=== PATIENT | female | born 1985 | race Hispanic/Latino ===

== ENCOUNTER 2019-08-05 13:08 | Outpatient (CLI) | payer OTHER ==
--- NOTE | 2019-08-05 13:39 | RAD ---
EXAM: XR Pelvis AP STANDARD PROVIDED CLINICAL HISTORY: Right hip pain. COMPARISON: None FINDINGS: Small sclerotic density is seen in the left supra-acetabular region likely related to small bone geena nd. There is otherwise no evidence of fracture, dislocation, or other osseous abnormality. A T-shaped intrauterine contraceptive device overlies the pelvis. IMPRESSION: No acute osseous abnormality.
--- NOTE | 2019-08-05 13:40 | RAD ---
Exam: XR Hip Rt 2-3 View HISTORY: Pelvic pain for 5 years. COMPARISON: None FINDINGS: No acute fracture, dislocation, or other acute osseous abnormality is identified. A T-shaped intrauterine contraceptive device overlies the central pelvis. IMPRESSION: No acute osseous abnormality is identified.
--- NOTE | 2019-08-05 13:41 | RAD ---
Exam: XR Hip Lt 2-3 View HISTORY: Pelvic pain for 5 years. COMPARISON: None FINDINGS: There is a small sclerotic density seen in the left supra-acetabular region likely related to a small bone island. No acute fracture, dislocation, or other acute osseous abnormality is identified. A T-shaped intrauterine contraceptive device overlies the central pelvis. IMPRESSION: No acute osseous abnormality is identified.
== END 2019-08-05 13:09 | disposition home or self-care (01) ==
LOC: BICRAD 13:08
PROVIDERS: ATTEND Internal Medicine Rheumatology
DX: M25.551 Pain in right hip (principal)
CPT/HCPCS: 72170